=== PATIENT | male | born 1995 | race Caucasian/White ===

== ENCOUNTER 2019-07-25 08:25 | Inpatient (IN) | payer OTHER, SELFPAY ==
[2019-07-25] MEDS ORDERED: IBUPROFEN 400 MG TAB ONE (08:45)
[2019-07-25] MEDS ORDERED: NA CHLORIDE 0.9% 1,000 ML ONE ×3 (08:45→20:36)
[2019-07-25] MEDS ORDERED: ONDANSETRON 4 MG/2 ML VIAL ONE (09:07)
[2019-07-25] MEDS ORDERED: MORPHINE 4 MG/ML SYR ONE ×2 (09:07→11:05)
[2019-07-25 09:15] LABS: Absolute Lymphocytes (CBC) 1.2 K/uL (0.7-4.9); Basophils % 0.2 % (0-1.3); Hematocrit 44.2 % (39.6-49.0); Lymphocytes % 7.2 % (15.3-44.8); RBC Red Blood Cell Count 5.08 M/uL (4.33-5.43)
[2019-07-25 09:17] LABS: Protime INR 1.49
[2019-07-25 09:32] LABS: ALT/SGPT 34 U/L (12-78); AST/SGOT 16 U/L (15-37); Albumin 3.9 g/dL (3.4-5.0); Alkaline Phosphatase 71 U/L (45-117); BUN Blood Urea Nitrogen 11 mg/dL (7-18); Bicarbonate 25 mmol/L (21-32); Bilirubin Direct 0.4 mg/dL (0-0.2); Bilirubin Total 1.2 mg/dL (0.2-1.0); Glucose Level 113 mg/dL (74-106); Magnesium 2.2 mg/dL (1.8-2.4); NT PRO-BNP 76 pg/mL (<125); Potassium 3.9 mmol/L (3.5-5.1); Protein, Total 7.7 g/dL (6.4-8.2); Sodium Level 138 mmol/L (136-145); Troponin (Emerg Dept Use Only) < 0.02 ng/mL (0.0-0.045)
--- NOTE | 2019-07-25 11:00 | RAD REPORT ---
EXAM DESCRIPTION: CT - Thorax W/ Con - 07/25/2019 10:50 am CLINICAL HISTORY: Left-sided shoulder and chest pain, shortness of breath, recent pneumonia diagnosi s COMPARISON: Chest films same date TECHNIQUE: Dynamically enhanced 5 mm thick images of the chest were obtained during administration o f 100 mL non-ionic IV contrast. All CT scans are performed using dose optimization technique as appropriate and may include automated exposure control or mA/KV adjustment according to patient size. FINDINGS: Prominent interstitial markings are present in the right base. This may be subsegmental at electasis given the relative low lung volume on the CT examination. No consolidation in the right maryanne g field. Right base interstitial infiltrate is possible given the subsequent findings. Patient has partial consolidation of the left lower lobe with left lower lobe atelectasis present as well. Moderate-sized pleural effusion is present on the left with fluid in the superior aspect of the fissure. A few air bronchograms are present in the left lower lobe. There is partial atelectasis in the lingula left upper lobe. No cavitation or mass. No right-sided pleural effusion. No pleural based mass. The left hemidiaphragm is elevated. No pneum othorax. No chest wall mass or abnormal axillary lymphadenopathy. No abnormal mediastinal or hilar mass or lymphadenopathy seen. Trace amount of pericardial effusion s een along the left lateral margin. Aorta and pulmonary arterial tree enhance normally. IMPRESSION: Mixed pattern of left lower lobe pneumonia and partial atelectasis of the left lower lob e. Moderate pleural effusion is present. Fluid is along the fissure in the upper chest as well. No locul ation at this time. Trace amount of pericardial effusion along the left lateral margin. Right base stranding is favored to be atelectasis rather than right base infiltrate.
--- NOTE | 2019-07-25 11:01 | RAD REPORT ---
EXAM DESCRIPTION: RAD - Chest Single View - 07/25/2019 9:17 am CLINICAL HISTORY: Chest pain, shortness of breath COMPARISON: None. TECHNIQUE: AP portable chest image was obtained 0911 hours . FINDINGS: Lung volumes are low. Left base opacification is present with left hemidiaphragm and left heart border obscured. This is likely left base pneumonia with pleural effusion. Heart size and vascu lature in normal range for shallow inspiration film. Left hilar fullness may be artifact of shallow i nspiration. Malignancy would not be expected in a patient this age. No pneumothorax. No acute bony ab normality seen. No acute aortic findings suspected. IMPRESSION: Left lung base pneumonia with pleural effusion.
--- NOTE | 2019-07-25 11:15 | EDPHYS ---
Physician Documentation [facility] Name: Rene Sosa Age: 23 yrs Sex: Male : 1995 Arrival Date: 07/25/2019 Time: 08:29 Bed 20 Private MD: ED Physician Daniel Peterson HPI: 07/25 08:35 This 23 yrs old Male presents to ER via Ambulatory with complaints of Chest jmm Pain, Abdominal Pain, Shoulder Pain. 08:35 The patient or guardian reports cough. Onset: The symptoms/episode began/occurred jmm gradually, 2 day(s) ago. Modifying factors: The symptoms are alleviated by nothing. the symptoms are aggravated by lying flat. Associated signs and symptoms: Pertinent positives: chest pain, cough. This is a 23 year old male with no chronic medical conditions that presents to the ED with complaints of left flank pain, left sided chest pain, cough beginning 2 days ago. Patient was evaluated in the ED yesterday and diagnosed with pneumonia and prescribed azithromycin. Patient states pain has increased. Unable to lay on his back. . Historical: - Allergies: 08:42 No Known Allergies; sv - PMHx: 08:42 None; sv - PSHx: 08:42 None; sv - Immunization history:: Adult Immunizations up to date, Flu vaccine is not up to date. - Social history:: Smoking status: Patient/guardian denies using tobacco. - Ebola Screening: : No symptoms or risks identified at this time. ROS: 08:35 Constitutional: Positive for body aches. jmm 08:35 Cardiovascular: Positive for chest pain. 08:35 Respiratory: Positive for cough. 08:35 Back: Positive for flank pain. 08:35 All other systems are negative. Exam: 08:35 Constitutional: This is a well developed, well nourished patient who is awake, alert, jmm and in no acute distress. Head/Face: atraumatic. Eyes: EOMI, no conjunctival erythema appreciated ENT: Moist Mucus Membranes Neck: Trachea midline, Supple Chest/axilla: Normal chest wall appearance and motion. 08:35 Abdomen/GI: Non distended, soft Back: Normal ROM Skin: General appearance color normal MS/ Extremity: Moves all extremities, no obvious deformities appreciated, no edema noted to the lower extremities Neuro: Awake and alert, normal gait Psych: Behavior is normal, Mood is normal, Patient is cooperative and pleasant 08:35 Cardiovascular: Rate: normal, Rhythm: regular. 08:35 Respiratory: the patient does not display signs of respiratory distress, Respirations: normal, Breath sounds: wheezing: that is mild, is heard in the left posterior lower lobe. Vital Signs: 08:42 BP 130 / 88; Pulse 117; Resp 20; Temp 99.2(O); Pulse Ox 99% on R/A; Weight 127.01 kg sv (R); Height 6 ft. 4 in. (193.04 cm); Pain 5/10; 09:23 BP 127 / 92; Pulse 102; Resp 22; Pulse Ox 98% on R/A; Pain 3/10; em 10:01 BP 119 / 77; Pulse 101; Resp 20; Pulse Ox 96% on R/A; Pain 2/10; em 11:12 BP 133 / 83; Pulse 104; Resp 18; Pulse Ox 99% on 2 lpm NC; Pain 2/10; em 12:10 BP 127 / 76; Pulse 97; Resp 22; Pulse Ox 99% on 2 lpm NC; em 08:42 Body Mass Index 34.08 (127.01 kg, 193.04 cm) sv MDM: 08:35 Patient medically screened. [facility] 11:13 Data reviewed: vital signs, nurses notes. Counseling: I had a detailed discussion with [facility] the patient and/or guardian regarding: the historical points, exam findings, and any diagnostic results supporting the discharge/admit diagnosis, lab results, radiology results, the need for further work-up and treatment in the hospital. ED course: I discussed the patient with Dr. Burns whom accepted admission due to failed outpatient therapy and intractable pain. . 07/25 08:42 Order name: Basic Metabolic Panel [facility] 07/25 08:42 Order name: CBC with Diff [facility] 07/25 08:42 Order name: LFT's [facility] 07/25 08:42 Order name: Magnesium [facility] 07/25 08:42 Order name: NT PRO-BNP; Complete Time: 09:46 [facility] 07/25 08:42 Order name: PT-INR; Complete Time: 10:08 [facility] 07/25 08:42 Order name: Troponin (emerg Dept Use Only); Complete Time: 09:46 [facility] 07/25 08:42 Order name: D-Dimer; Complete Time: 10:08 [facility] 07/25 08:42 Order name: Procalcitonin; Complete Time: 10:08 [facility] 07/25 08:42 Order name: Lactate; Complete Time: 09:46 [facility] 07/25 08:43 Order name: Basic Metabolic Panel; Complete Time: 09:46 [facility] 07/25 08:43 Order name: CBC with Automated Diff; Complete Time: 09:46 [facility] 07/25 08:43 Order name: Liver (Hepatic) Function; Complete Time: 09:46 [facility] 07/25 08:43 Order name: Magnesium; Complete Time: 09:46 [facility] 07/25 08:42 Order name: XRAY Chest (1 view); Complete Time: 11:02 [facility] 07/25 08:44 Order name: Blood Culture Adult (2) [facility] 07/25 10:08 Order name: CT Chest W/ Con; Complete Time: 11:02 [facility] 07/25 12:36 Order name: CBC with Automated Diff [facility] 07/25 12:36 Order name: CBC with Automated Diff [facility] 07/25 12:36 Order name: Comprehensive Metabolic Panel [facility] 07/25 12:36 Order name: Comprehensive Metabolic Panel [facility] 07/25 12:36 Order name: Lipid Profile [facility] 07/25 12:36 Order name: Lipid Profile [facility] 07/25 08:42 Order name: EKG; Complete Time: 08:43 [facility] 07/25 08:42 Order name: Cardiac monitoring; Complete Time: 09:34 [facility] 07/25 08:42 Order name: EKG - Nurse/Tech; Complete Time: 09:12 [facility] 07/25 08:42 Order name: IV Saline Lock; Complete Time: 09:34 [facility] 07/25 08:42 Order name: Labs collected and sent; Complete Time: 09:34 [facility] 07/25 08:42 Order name: O2 Per Protocol; Complete Time: 09:34 [facility] 07/25 08:42 Order name: O2 Sat Monitoring; Complete Time: 09:34 [facility] 07/25 12:36 Order name: Regular EDMS Administered Medications: 08:55 Drug: NS 0.9% 1000 ml Route: IV; Rate: 1 bolus; Site: right antecubital; em 10:02 Follow up: IV Status: Completed infusion; IV Intake: 1000ml em 09:08 Drug: Zofran 4 mg Route: IVP; Site: right antecubital; iw 09:41 Follow up: Response: No adverse reaction em 09:10 Drug: morphine 4 mg Route: IVP; Site: right antecubital; iw 09:42 Follow up: Response: No adverse reaction; Marked relief of symptoms; Pain is decreased em 09:21 Drug: Motrin 800 mg Route: PO; em 10:02 Follow up: Response: No adverse reaction em 11:09 Drug: morphine 4 mg Route: IVP; Site: right antecubital; em 11:29 Follow up: Response: No adverse reaction; Pain is decreased; RASS: Alert and Calm (0) em 11:16 Drug: NS 0.9% 1000 ml Route: IV; Rate: 1 bolus; Site: right antecubital; em 13:02 Follow up: IV Status: Completed infusion; IV Intake: 1000ml em 11:29 Drug: LevaQUIN 750 mg Volume: 150 ml; Route: IVPB; Infused Over: 90 mins; Site: right em antecubital; 13:03 Follow up: Response: No adverse reaction; IV Status: Completed infusion; IV Intake: em 150ml Disposition: 07/26 07:50 Co-signature as Attending Physician, Daniel Peterson MD I agree with the assessment and kdr plan of care. Disposition: 07/25/19 11:14 Hospitalization ordered by Nato Burns for Observation. Preliminary diagnosis are Pneumonia in diseases classified elsewhere, Intractable Pain. - Bed requested for Telemetry/MedSurg (observation). - Status is Observation. em - Condition is Stable. - Problem is new. - Symptoms are unchanged. UTI on Admission? No Signatures: Dispatcher [employer] Kady Raya RN RN sv Rittger, Kevin, MD MD kdr Mickail, Joel, PA PA jmm Darrel Carmona, PROGRAM OR PROJECT ADMINISTRATOR PROGRAM OR PROJECT ADMINISTRATOR em Andra Epps, Aric Kramer RN, RN RN ja1 Corrections: (The following items were deleted from the chart) 07/25 11:56 11:14 Hospitalization Ordered by Nato Burns MD for Observation. Preliminary ja1 diagnosis is Pneumonia in diseases classified elsewhere; Intractable Pain. Bed requested for Telemetry/MedSurg (observation). Status is Observation. Condition is Stable. Problem is new. Symptoms are unchanged. UTI on Admission? No. jmm 13:10 11:56 07/25/2019 11:14 Hospitalization Ordered by Nato Burns MD for Observation. em Preliminary diagnosis is Pneumonia in diseases classified elsewhere; Intractable Pain. Bed requested for Telemetry/MedSurg (observation). Status is Observation. Condition is Stable. Problem is new. Symptoms are unchanged. UTI on Admission? No. ja1
--- NOTE | 2019-07-25 11:15 | ER ---
Nurse's Notes [facility] Name: Rene Sosa Age: 23 yrs Sex: Male : 1995 Arrival Date: 07/25/2019 Time: 08:29 Bed 20 Private MD: Diagnosis: Pneumonia in diseases classified elsewhere;Intractable Pain Presentation: 07/25 08:34 Presenting complaint: Patient states: was seen at [facility] and dx w/ pneumonia about sv 2 nights ago, today has persistent left shoulder/chest/mid back pain/left flank pain, worse with breathing. Sent home with Leif. Transition of care: patient was not received from another setting of care. Onset of symptoms was July 23, 2019. Risk Assessment: Do you want to hurt yourself or someone else? Patient reports no desire to harm self or others. Initial Sepsis Screen: Does the patient meet any 2 criteria? HR > 90 bpm. No. Patient's initial sepsis screen is negative. Does the patient have a suspected source of infection? Yes: Productive cough/pneumonia. Care prior to arrival: Medication(s) given: Zpack. 08:34 Method Of Arrival: Ambulatory sv 08:34 Acuity: YUSRA 3 sv Historical: - Allergies: 08:42 No Known Allergies; sv - PMHx: 08:42 None; sv - PSHx: 08:42 None; sv - Immunization history:: Adult Immunizations up to date, Flu vaccine is not up to date. - Social history:: Smoking status: Patient/guardian denies using tobacco. - Ebola Screening: : No symptoms or risks identified at this time. Screenin:50 Abuse screen: Denies threats or abuse. Nutritional screening: No deficits noted. em Tuberculosis screening: No symptoms or risk factors identified. Fall Risk None identified. Assessment: 08:35 General: Appears in no apparent distress. uncomfortable, well developed, Behavior is sv calm, cooperative, appropriate for age. Pain: Complains of pain in left supraclavicular area, left clavicle, anterior aspect of left upper chest, left lateral posterior chest and anterior aspect of left shoulder Pain does not radiate. Pain currently is 5 out of 10 on a pain scale. Pain began 2-3 days ago. Is continuous, Aggravated by breathing. Neuro: Level of Consciousness is awake, alert, obeys commands, Oriented to person, place, time, situation, Gait is steady, Speech is normal. Respiratory: Respiratory effort is even, unlabored, Respiratory pattern is regular, symmetrical. Derm: Skin is normal. 10:01 Reassessment: Patient appears in no apparent distress at this time. Patient and/or em family updated on plan of care and expected duration. Pain level reassessed. Patient is alert, oriented x 3, equal unlabored respirations, skin warm/dry/pink. rates pain 2/10 Patient states feeling better. 11:30 Reassessment: Patient appears in no apparent distress at this time. Patient and/or em family updated on plan of care and expected duration. Pain level reassessed. Patient is alert, oriented x 3, equal unlabored respirations, skin warm/dry/pink. Patient states feeling better. Patient states symptoms have improved. Vital Signs: 08:42 BP 130 / 88; Pulse 117; Resp 20; Temp 99.2(O); Pulse Ox 99% on R/A; Weight 127.01 kg sv (R); Height 6 ft. 4 in. (193.04 cm); Pain 5/10; 09:23 BP 127 / 92; Pulse 102; Resp 22; Pulse Ox 98% on R/A; Pain 3/10; em 10:01 BP 119 / 77; Pulse 101; Resp 20; Pulse Ox 96% on R/A; Pain 2/10; em 11:12 BP 133 / 83; Pulse 104; Resp 18; Pulse Ox 99% on 2 lpm NC; Pain 2/10; em 12:10 BP 127 / 76; Pulse 97; Resp 22; Pulse Ox 99% on 2 lpm NC; em 08:42 Body Mass Index 34.08 (127.01 kg, 193.04 cm) sv ED Course: 08:29 Patient arrived in ED. mr 08:30 Fran Almonte PA is PHCP. jmm 08:30 Daniel Peterson MD is Attending Physician. jmm 08:34 Arm band placed on Patient placed in an exam room, on a stretcher. sv 08:35 Patient has correct armband on for positive identification. Bed in low position. Call light in reach. Adult w/ patient. Pulse ox on. NIBP on. 08:38 Darrel Carmona LVN is Primary Nurse. em 08:41 Triage completed. sv 08:46 Patient maintains SpO2 saturation greater than 95% on room air. sv 08:55 Inserted saline lock: 20 gauge in right antecubital area, using aseptic technique. em Blood collected. 08:55 Initial lab(s) drawn, by me, sent to lab. First set of blood cultures drawn by me. em 09:11 EKG done, by ED staff, reviewed by Daniel Peterson MD. 5 09:18 XRAY Chest (1 view) In Process Unspecified. EDMS 10:51 CT Chest W/ Con In Process Unspecified. EDMS 11:13 Nato Burns MD is Hospitalizing Provider. m 13:07 No provider procedures requiring assistance completed. Patient admitted, IV remains in em place. Administered Medications: 08:55 Drug: NS 0.9% 1000 ml Route: IV; Rate: 1 bolus; Site: right antecubital; em 10:02 Follow up: IV Status: Completed infusion; IV Intake: 1000ml em 09:08 Drug: Zofran 4 mg Route: IVP; Site: right antecubital; iw 09:41 Follow up: Response: No adverse reaction em 09:10 Drug: morphine 4 mg Route: IVP; Site: right antecubital; iw 09:42 Follow up: Response: No adverse reaction; Marked relief of symptoms; Pain is decreased em 09:21 Drug: Motrin 800 mg Route: PO; em 10:02 Follow up: Response: No adverse reaction em 11:09 Drug: morphine 4 mg Route: IVP; Site: right antecubital; em 11:29 Follow up: Response: No adverse reaction; Pain is decreased; RASS: Alert and Calm (0) em 11:16 Drug: NS 0.9% 1000 ml Route: IV; Rate: 1 bolus; Site: right antecubital; em 13:02 Follow up: IV Status: Completed infusion; IV Intake: 1000ml em 11:29 Drug: LevaQUIN 750 mg Volume: 150 ml; Route: IVPB; Infused Over: 90 mins; Site: right em antecubital; 13:03 Follow up: Response: No adverse reaction; IV Status: Completed infusion; IV Intake: em 150ml Intake: 10:02 IV: 1000ml; Total: 1000ml. em 13:02 IV: 1000ml; Total: 2000ml. em 13:03 IV: 150ml; Total: 2150ml. em Outcome: 11:14 Decision to Hospitalize by Provider. kamryn 12:20 Admitted to Med/surg accompanied by tech, family with patient, via wheelchair, room em 210, with oxygen, with chart, Report called to MCKAYLA Barrera 12:20 Condition: good 12:20 Instructed on the need for admit, Demonstrated understanding of instructions. 13:10 Patient left the ED. em Signatures: Dispatcher [employer] Kady Raya, RN Fran Tran PA PA jmm Rivera, Mary mr Mathew, Darrel, TOE TRIMMER TOE TRIMMER Andra Nelson, MCKAYLA BLOCK [place] [id number]
[2019-07-25] MEDS ORDERED: Levofloxacin 750mg IV 750 MG/150 ML BAG IV ONE (11:21)
[2019-07-25] MEDS ORDERED: ZOLPIDEM TARTRATE 5 MG TABLET PO PRN (12:29)
[2019-07-25 13:42] VITALS: BMI 34.3
[2019-07-25] MEDS: ACETAMINOPHEN 500 MG TAB PO PRN (13:54)
[2019-07-25] MEDS: ENOXAPARIN 40 MG/0.4 ML SQ SCH (13:54)
[2019-07-25] MEDS: CEFTRIAXONE/SWI 1gm 1 GM/10 ML SYR IVP SCH ×2 (13:54→20:21)
[2019-07-25] MEDS ORDERED: AZITHROMYCIN IV 500 MG in NA CHLORIDE 0.9% 250 ML IVPB SCH (14:00)
[2019-07-25] MEDS: IPRATROPIUM BROM 0.5MG/2.5ML NEB SCH ×2 (14:17→20:00)
[2019-07-25] MEDS: ALBUTEROL 2.5 MG/3 ML NEB SOL NEB SCH ×2 (14:17→20:00)
[2019-07-25] MEDS: MORPHINE 2 MG/ML SYR IV PRN ×3 (15:18→23:44)
[2019-07-25] MEDS ORDERED: INFLUENZA VACCINE (for 3y+) 0.5 ML DOSE IMVAC ONE (16:00)
[2019-07-25] MEDS: ONDANSETRON 4 MG/2 ML VIAL IV PRN (18:14)
[2019-07-25] MEDS ORDERED: NA CHLORIDE 0.9% 250 ML IV ONE ×2 (20:07→23:33)
[2019-07-25] MEDS ORDERED: ACETAMINOPHEN 500 MG TAB PO ONE (20:08)
[2019-07-25] MEDS: NA CHLORIDE 0.9% 1,000 ML IV SCH (20:49)
--- NOTE | 2019-07-25 23:29 | HP ---
Date of Admission: 07/25/2019 Reason For Admission: Chest pain with shortness of breath. History Of Present Illness: This is a 23-year-old gentleman without significant past medical history , who initially presented to a local yesterday due to progressive shortness of breath as w ell as left-sided chest pain that started 2 days ago including left shoulder, left flank, and left ba ck. Worse with breathing. X-ray was done and showed signs of pneumonia. Patient was given Z-Ashish an d discharged home, but his symptoms got worse and shortness of breath and chest pain mostly on the le ft side got worse. He decided to come to the emergency room today. He was evaluated in our emergenc y room and found to have again left lung base pneumonia with pleural effusion on the x-ray. Had a CT of the chest done as well, showed mixed pattern of left lower lobe pneumonia and partial atelectasis of the left lower lobe. Moderate pleural effusion effusion noted on the left lateral mar gin; right base stranding, favored to be atelectasis rather than a right base infiltrate. Patient re ported mild nausea, fatigue. He was given morphine, Motrin, and Zofran and admitted for treatment of his pneumonia. Patient's labs in the ER showed leukocytosis, white blood cells 16.8. Chemistry was unremarkable. Blood culture was done. Currently, he is sitting in bed. He is feeling comfortable. Chest pain improved after he got the morphine. Review of Systems: Otherwise as below. Past Medical History: None. Past Surgical History: None. Allergies: NONE. Social History: He is . He is 23 years old. 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 He does not smoke or use any drugs. He does drink socially. Family History: Father and mother are alive and they are both healthy. Father has diabetes. Home Medications: None. Review of Systems: He had a fever 2 days ago. There are no chills or night sweats. He has not had any loss of consciou sness. He has a cough, no sputum. He has shortness of breath. He has no nausea, vomiting, abdomina l pain, change in bowel movement, diarrhea, constipation, dysuria, frequency, urgency, hematuria. De nies history of depression, anxiety, seizure, or stroke. Physical Examination: Vital Signs: Blood pressure is 130/88; respiratory rate 20; pulse 117 on arrival, 101 now; and satur ating 98% on room air. Current pain is 2/10. General: Patient is alert and oriented x3. Does not look in any distress. HEENT: Atraumatic, normocephalic. PERRLA. Oral mucosa is moist. Neck: Supple. No JVD. No bruits. Chest: Clear to auscultation. Good air entry. He has crackles in the left lung. Heart: Regular rate and rhythm. Tachy. No gallop or murmur. Abdomen: Soft, nontender, with no hepatosplenomegaly. Positive bowel sounds. Extremities: No clubbing, cyanosis, or edema. No calf tenderness. Neurologic: Grossly intact. Cranial nerve exam 2 through 12 intact. Normal sensation. Normal refl exes. Normal muscle strength. Laboratory Data: Today, showed CBC with white blood cells 16.8, platelets normal, hemoglobin normal, left shift with neutrophils of 84%. Chemistry normal. Glucose 113, total bilirubin 1.2, direct emigdio irubin 0.4, globulin 3.8. CT and chest x-ray as mentioned in my History of Present Illness. Assessment And Plan: This is a 23-year-old gentleman without significant past medical history, prese nted with history of 2 or 3 days of fever, chills, and left-sided chest pain. Found to have left maryanne g pneumonia. 1.Left lower lobe pneumonia. We will proceed with blood culture, start patient on IV antibiotic wit h ceftriaxone and Zithromax. Patient was outpatient on Z-Ashish, which was apparently not strong enough , and that is why he continued to have chest pain. Physical exam was negative. Procalcitonin was 0. 39, so there is no evidence of sepsis. We will place patient on an inhaler every 6 hours as well as oxygen. 2.Chest pain. Started on morphine. 3.Overweight. Advised diet and exercise as an outpatient. 4.Deep vein thrombosis prophylaxis with Lovenox. LEONID/BELKIS Voice ID: [id number]
[2019-07-26] MEDS ORDERED: HYDROCORTISONE SUC 100 MG INJ IV ONE (00:22)
[2019-07-26] MEDS: ACETAMINOPHEN 500 MG TAB PO PRN ×3 (00:35→20:43)
[2019-07-26] MEDS: IPRATROPIUM BROM 0.5MG/2.5ML NEB SCH ×2 (02:00→08:13)
[2019-07-26] MEDS: ALBUTEROL 2.5 MG/3 ML NEB SOL NEB SCH ×2 (02:00→08:13)
[2019-07-26] MEDS ORDERED: PIPERACIL/TAZO 3.375 GM VIAL IV ONE (05:27)
[2019-07-26] MEDS ORDERED: NA CHLORIDE 0.9% 100 ML ONE (05:29)
[2019-07-26] MEDS: MORPHINE 2 MG/ML SYR IV PRN (05:54)
[2019-07-26 05:57] LABS: Absolute Lymphocytes (CBC) 1.5 K/uL (0.7-4.9); Basophils % 0.3 % (0-1.3); Hematocrit 41.2 % (39.6-49.0); Lymphocytes % 8.5 % (15.3-44.8); MPV 7.9 fL (7.6-11.3); RBC Red Blood Cell Count 4.61 M/uL (4.33-5.43)
[2019-07-26 05:59] LABS: Protime INR 1.41
[2019-07-26] MEDS ORDERED: PIPER/TAZO/NS 3.375gm 3.375 GM/100 ML BAG IVPB SCH (06:00)
[2019-07-26 06:05] LABS: ALT/SGPT 24 U/L (12-78); AST/SGOT 11 U/L (15-37); Alkaline Phosphatase 64 U/L (45-117); BUN Blood Urea Nitrogen 11 mg/dL (7-18); Bicarbonate 24 mmol/L (21-32); Bilirubin Total 0.5 mg/dL (0.2-1.0); Glucose Level 132 mg/dL (74-106); HDL Cholesterol 37 mg/dL (40-60); LDL Cholesterol, Calculated 71 (<130); Potassium 4.3 mmol/L (3.5-5.1); Protein, Total 6.7 g/dL (6.4-8.2); Sodium Level 142 mmol/L (136-145)
[2019-07-26 06:11] LABS: Albumin 3.1 g/dL (3.4-5.0); Bilirubin Direct 0.2 mg/dL (0-0.2); Bilirubin Total 0.6 mg/dL (0.2-1.0); Protein, Total 6.7 g/dL (6.4-8.2); Thyroid Stimulating Hormone 1.02 uIU/mL (0.360-3.740)
--- NOTE | 2019-07-26 07:41 | P.PN ---
Subjective Date of Service: 07/25/19 Called to see patient regarding tachycardia and chest discomfort. Evaluated patient's records. Patient with pneumonia with consolidation. Patient also with moderate pleural effusion and I had as well as pleural effusion in the fissure superior to the left lower lobe. Patient having pleuritic chest pain and heart rate varying from 120s to 140s. Will consult Pulmonary. We will also get interventional Radiology to see the patient for diagnosis of possible parapneumonic effusion. Review of Systems 10-point ROS is otherwise unremarkable Physical Examination - Vital Signs Temperature: 9.9 F Blood Pressure: 125/73 Pulse: 126 Respirations: 18 Pulse Ox (%): 94 - Physical Exam General: Alert, Oriented x3, Mild distress Respiratory: Diminished ( left lower lobe) Cardiovascular: Regular rate/rhythm, Normal S1 S2 Gastrointestinal: Normal bowel sounds, Soft and benign, Non-distended, No tenderness Musculoskeletal: No clubbing, No swelling - Studies Laboratory Data (last 24 hrs) 07/25/19 08:55: PT 17.3 H, INR 1.49 07/25/19 08:55: WBC 16.8 H, Hgb 15.1, Hct 44.2, Plt Count 227 07/25/19 08:55: Sodium 138, Potassium 3.9, BUN 11, Creatinine 1.05, Glucose 113 H, Magnesium 2.2, Total Bilirubin 1.2 H, AST 16, ALT 34, Alkaline Phosphatase 71 Assessment & Plan - Problems (Diagnosis) (1) Parapneumonic effusion Current Visit: Yes Status: Acute (2) Consolidation of left lower lobe of lung Current Visit: Yes Status: Acute (3) Tachycardia Current Visit: Yes Status: Acute (4) Pleuritic chest pain Current Visit: Yes Status: Acute - Plan Plan: 1. Continue with IV antibiotics 2. Awaiting sputum and blood culture; procalcitonin level is nl so most likely pneumonic process with no sepsis 3. Repeat chest x-ray in AM 4. interventional radiology consultation for possible ultrasound-guided thoracentesis 5. morphine for pain 6. Continue with nebs as needed 7. O2 per protocol 8. Continue with gentle hydration 9. hydrocortisone x1 for pleurisy type pain 10. pulmonary consultation 11. GI and DVT prophylaxis Discharge Plan: Home Plan to discharge in: Greater than 2 days - Advance Directives Does patient have a Living Will: No Does patient have a Durable POA for Healthcare: No - Code Status/Comfort Care Code Status Assessed: Yes Code Status: Full Code Critical Care: No Time Spent Managing PTS Care (In Minutes): 45
[2019-07-26] MEDS: ENOXAPARIN 40 MG/0.4 ML SQ SCH (09:00)
[2019-07-26] MEDS ORDERED: HYDROCODONE/APAP 7.5/325 MG TAB PO PRN (09:02)
--- NOTE | 2019-07-26 09:37 | EKG ---
Test Date: 2019-07-25 Test Time: 08:44:00 Echocardiograph Technician: LASHAWN MEASUREMENT RESULTS: Intervals: Rate: 114 MS: 116 QRSD: 102 QT: 320 QTc: 441 Rawlings: P: 21 MS: 116 QRS: 26 T: 42 INTERPRETIVE STATEMENTS: Sinus tachycardia Possible Left atrial enlargement Borderline ECG No previous ECG available for comparison Electronically Signed On 07-26-19 09:36:16 JIG MILL OPERATOR by Asim Molina
--- NOTE | 2019-07-26 09:37 | EKG ---
Test Date: 2019-07-25 Test Time: 08:44:28 Associate Business Analyst: LASHAWN MEASUREMENT RESULTS: Intervals: Rate: 114 [place]: 146 QRSD: 98 QT: 328 QTc: 452 Thurston: P: 38 [place]: 146 QRS: 23 T: 42 INTERPRETIVE STATEMENTS: Sinus tachycardia Otherwise normal ECG Compared to ECG 07/25/2019 08:44:00 No significant changes Electronically Signed On 07-26-19 09:36:12 STILL RUNNER by Asim Molina
--- NOTE | 2019-07-26 10:43 | RAD REPORT ---
EXAM DESCRIPTION: US - Chest - 07/26/2019 9:57 am CLINICAL HISTORY: Pneumonia, pleural effusion COMPARISON: CT chest July 25 FINDINGS: Sonographic evaluation of the left chest was performed to evaluate pleural fluid. Small am ount of pleural fluid was identified high in the chest at the level of the scapula. No significant pl eural fluid was identifiable in the left lung base. No septation or stranding. No sonographic finding s specific for loculation. The upper thoracic fluid is not a drainable quantity of fluid due to volume and location. Findings discussed with the consulting pipe layer at the time of the study. IMPRESSION: Small quantity of fluid high in the chest at the scapula level. This is not a drainable collection based on location and quantity of fluid.
--- NOTE | 2019-07-26 10:43 | RAD REPORT ---
EXAM DESCRIPTION: US - Abdomen Exam Complete - 07/26/2019 9:57 am CLINICAL HISTORY: Abdominal pain. elevated bilirubin COMPARISON: No comparisons FINDINGS: Mild diffuse fatty liver is present. No focal liver lesions or intrahepatic biliary dilata tion is seen. The gallbladder demonstrates no gallstones, pericholecystic fluid or gallbladder wall thickening. Co mmon bile duct is normal in caliber measuring 3 mm. Both kidneys are normal in size, shape and echotexture. No hydronephrosis, focal lesion of concern or perinephric fluid. The spleen is normal in size measuring 13 cm. The pancreas and aorta are obscured by bowel gas. The visualized aspects of the IVC are grossly normal. IMPRESSION: Mild diffuse fatty liver.
[2019-07-26] MEDS ORDERED: Levofloxacin500mg IV 500 MG/100 ML BAG IV SCH (11:00)
[2019-07-26] MEDS: PIPER/TAZO/NS 3.375gm 3.375 GM/100 ML BAG IVPB SCH ×2 (11:18→16:46)
[2019-07-26] MEDS: NA CHLORIDE 0.9% 1,000 ML IV SCH (11:20)
--- NOTE | 2019-07-26 11:24 | ECHO ---
HEIGHT: 6 ft 4 in WEIGHT: 282 lb 4 oz DATE OF STUDY: 07/26/[address]: Jackie Nicolas MD 2-DIMENSIONAL: YES M.MODE: YES DOPPLER: YES COLOR FLOW: YES TDS: YES PORTABLE: DEFINITY: BUBBLE STUDY: DIAGNOSIS: PLURAL EFFUSION CARDIAC HISTORY: CATHERIZATION: NO SURGERY: NO PROSTHETIC VALVE: NO PACEMAKER: NO MEASUREMENTS (cm) DIASTOLIC (NORMALS) SYSTOLIC (NORMALS) IVSd 0.9 (0.6-1.2) LA Diam 3.4 (1.9-4.0) LVEF 65% LVIDd 3.2 (3.5-5.7) LVIDs 2.1 (2.0-3.5) %FS 34% LVPWd 1.0 (0.6-1.2) Ao Diam 2.5 (2.0-3.7) 2 DIMENSIONAL ASSESSMENT: RIGHT ATRIUM: NORMAL LEFT ATRIUM: NORMAL RIGHT VENTRICLE: NORMAL LEFT VENTRICLE: NORMAL TRICUSPID VALVE: NORMAL MITRAL VALVE: NORMAL PULMONIC VALVE: NORMAL AORTIC VALVE: NORMAL PERICARDIAL EFFUSION: NONE AORTIC ROOT: NORMAL LEFT VENTRICULAR WALL MOTION: NORMAL DOPPLER/COLOR FLOW: NORMAL COMMENTS: NORMAL TWO DIMENSIONAL ECHOCARDIOGRAM WITH DOPPLER. TECHNOLOGIST: MARINO NOLAN
--- NOTE | 2019-07-26 11:59 | P.CNS ---
Date of Consult: 07/26/19 Chief Complaint: Left-sided pleuritic chest pain History of Present Illness: Patient is 73 years of age admitted with sudden onset of left-sided pleuritic chest pain associated with fever and chills was found to have a left-sided pleural effusion presume secondary to pneumonia and no other prior cardiopulmonary problems patient used to take acid reflux medication before Allergies No Known Allergies Allergy (Verified 07/25/19 12:18) Home Medications: Omeprazole 1 cap PO SEECOM PRN 07/26/19 - Past Medical/Surgical History Diabetic: No -: Colonoscopy, 5 months ago / Outpatient -: Col[facility] Bone Surgery, 2007 / [facility] - Family History Father Notes: high cholesterol Mother Notes: none - Social History Alcohol use: Yes CD- Drugs: No Caffeine use: Yes Place of Residence: Home Review of Systems 10-point ROS is otherwise unremarkable Physical Examination Temp Pulse Resp BP Pulse Ox 98.9 F 118 H 20 134/77 95 07/26/19 08:00 07/26/19 08:00 07/26/19 09:15 07/26/19 08:00 07/26/19 09:15 General: Alert, Mild distress Respiratory: Clear to auscultation bilaterally, Diminished (Diminished on the left side) Cardiovascular: No edema, Regular rate/rhythm, Normal S1 S2 - Problems (1) Pleuritic chest pain Current Visit: Yes Status: Acute Plan: Patient is 23 years of age 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 levofloxacin for 10 days
[2019-07-26] MEDS ORDERED: VANCOMYCIN/NS 1 gm 1 GM/250 ML BAG IVPB SCH (14:30)
[2019-07-26] MEDS: VANCOMYCIN 2 GM in NA CHLORIDE 0.9% 500 ML IVPB SCH (15:52)
[2019-07-26] MEDS: ONDANSETRON 4 MG/2 ML VIAL IV PRN (19:29)
--- NOTE | 2019-07-26 19:31 | PN ---
Date of Progress Note: 07/26/2019 Subjective: Patient is seen and examined. Chart reviewed and case discussed with RN and Dr. Dominga worley. Patient is still having significant amount of pain with deep breaths, currently on 2 L of oxygen, was scheduled for thoracentesis today, however ultrasound did not show any drainable fluid. Medications: List reviewed. Physical Examination: Vital Signs: Temperature 98.9, heart rate 118, blood pressure 134/77, respirations 20, O2 95% on 2 L via nasal cannula. General: Awake alert oriented x3, obese male. CV: S1, S2. Sinus tachycardia. Peripheral pulses present. Respiratory: Diminished breath sounds. Poor inspiratory effort. Some rhonchi heard. Gastrointestinal: Abdomen is soft, nontender, nondistended. Positive bowel sounds. No guarding or rigidity. Extremities: No clubbing, cyanosis, or edema. No calf tenderness. Neurologic: Cranial nerves 2 through 12 intact grossly. No focal neurological deficit. Speech is n ormal. Laboratory Data: Sodium 142, potassium 4.3, chloride 111, CO2 24, BUN 11, creatinine 1.01, glucose 1 32, calcium 8.2. Total bilirubin 0.5, direct bilirubin 0.2, AST 11, ALT 24, lactate dehydrogenase is 169, albumin 3. Triglycerides 68, cholesterol 122, LDL 71, HDL 37. TSH 1.02, free T4 1.29, lactate 1. INR 1.41. D-dimer is 499. WBC 17.4, H and H of 13.6 and 41.2, platelets 236, neutrophils 83%. Blood cultures, no growth to date. Echocardiogram shows EF of 65%. Normal 2 dimensional echo with Doppler. EKG shows sinus tachycardia, rate of 114. Chest ultrasound shows small quantity of fluid, high in the chest at the scapular level. This is not drainable collec tion based on location and quantity of fluid. Abdominal ultrasound, mild diffuse fatty liver. Assessment: A 23-year-old male with: 1.Left lower lobe pneumonia. We will continue with IV antibiotics adjusted, changed over to Zosyn a nd vancomycin. We will follow up on blood cultures, failed outpatient treatment with Z-Ashish. No evid ence of sepsis at this time, but white blood cell count trending up. Did receive dose of IV steroids due to pleuritic chest pain. 2.Left-sided pleural effusion, not amenable to drainage. We will repeat chest x-ray in a.m. Keep n .p.o. May need thoracentesis in a.m. If it turns out to be loculated or worsening, may need to be t ransferred for cardiothoracic surgery and VATS procedure. 3.Pleuritic chest pain secondary to above. 4.Obese BMI 34, counseled. We will check A1c. 5.Hyperglycemia without diagnosis of diabetes. Check A1c may be related to steroids and stress kelly ramirez versus diabetes. 6.Fatty liver disease, counseled. 7.Hyperbilirubinemia, corrected, likely acute phase reactant. Plan: As above. We will continue with Lovenox for deep venous thrombosis prophylaxis. We will hold in a.m. for possible thoracentesis, pending chest x-ray. /BELKIS Voice ID: [id number] Report ID: [id number]
[2019-07-26] MEDS ORDERED: FUROSEMIDE 40 MG/4 ML VIAL IV ONE (20:14)
[2019-07-26] MEDS ORDERED: METHYLPREDNISOLONE 40 MG INJ IV ONE (20:15)
[2019-07-27] MEDS: PIPER/TAZO/NS 3.375gm 3.375 GM/100 ML BAG IVPB SCH ×4 (00:55→20:06)
[2019-07-27] MEDS: VANCOMYCIN 2 GM in NA CHLORIDE 0.9% 500 ML IVPB SCH ×2 (03:27→16:37)
[2019-07-27 05:49] LABS: Absolute Lymphocytes (CBC) 0.7 K/uL (0.7-4.9); Basophils % 0.1 % (0-1.3); Hematocrit 36.8 % (39.6-49.0); Lymphocytes % 5.3 % (15.3-44.8); MPV 8.2 fL (7.6-11.3); RBC Red Blood Cell Count 4.25 M/uL (4.33-5.43)
[2019-07-27 05:56] LABS: Albumin 2.9 g/dL (3.4-5.0); Bilirubin Total 0.5 mg/dL (0.2-1.0); Potassium 3.8 mmol/L (3.5-5.1); Protein, Total 6.8 g/dL (6.4-8.2)
--- NOTE | 2019-07-27 08:32 | RAD REPORT ---
EXAM DESCRIPTION: RAD - Chest Pa And Lat (2 Views) - 07/27/2019 8:15 am CLINICAL HISTORY: left sided effusion Chest pain. COMPARISON: Chest Single View dated 07/25/2019; Thorax W/ Con dated 07/25/2019; Chest dated 07/26/20 19; Abdomen Exam Complete dated 07/26/2019 FINDINGS: Large left-sided pleural effusion noted. Minimal atelectasis is present in the right lung base. The heart is upper limit normal in size. No displaced fractures.
--- NOTE | 2019-07-27 08:43 | P.PN ---
Subjective Date of Service: 07/27/19 Chief Complaint: Left-sided pleuritic chest pain Subjective: Improving (Patient pain has significantly improved is feeling better chest x-ray worse) Review of Systems General: Weakness Respiratory: Shortness of Breath Physical Examination - Vital Signs Temperature: 98.1 F Blood Pressure: 135/80 Pulse: 111 Respirations: 18 Pulse Ox (%): 91 - Physical Exam General: Alert, In no apparent distress, Oriented x3 Respiratory: Diminished (Diminished air entry on the left side right lung is clear) Cardiovascular: No edema, Normal pulses Assessment & Plan - Problems (Diagnosis) (1) Pleuritic chest pain Current Visit: Yes Status: Acute Plan: Patient most likely has left-sided parapneumonic effusion secondary to a pneumococcal infection clinically he is improving chest x-ray looks worse is a pleural effusion a significantly worse white count is declined slight fever yesterday on Zosyn and vancomycin I have discussed with the patient and his mother will repeat an ultrasound today and then no significant loculations patient will benefit from a chest tube otherwise he will need to be transferred to a tertiary care center for a vats procedure patient's vital signs are stable
[2019-07-27] MEDS ORDERED: D5 0.9 NS 1,000 ML IV SCH (09:00)
[2019-07-27] MEDS: ENOXAPARIN 40 MG/0.4 ML SQ SCH (09:00)
--- NOTE | 2019-07-27 09:23 | RAD REPORT ---
EXAM DESCRIPTION: US - Chest - 07/27/2019 9:15 am CLINICAL HISTORY: Left sided effusion COMPARISON: Chest Pa And Lat (2 Views) dated 07/27/2019; Thorax W/ Con dated 07/25/2019; Chest dated 07/26/2019 FINDINGS: Real-time sonography was performed of the left chest wall. A loculated moderate size pleur al effusion is noted with fluid extending into the fissure.
[2019-07-27 12:49] LABS: Anisocytosis 1+; Blood Morphology Comment NOTED (NOT SEEN); Platelet Estimate ADEQ; Urine White Blood Cell Casts OK
[2019-07-27] MEDS: ACETAMINOPHEN 500 MG TAB PO PRN (13:53)
[2019-07-27 16:33] VITALS: BP 133/74
[2019-07-27 17:58] VITALS: O2SAT 96
[2019-07-27] MEDS ORDERED: PANTOPRAZOLE 40MG TABLET PO ONE (18:00)
[2019-07-27] MEDS ORDERED: ACETAMINOPHEN 325 MG TABLET PO ONE (18:00)
[2019-07-27 18:36] VITALS: TEMP 99.2
--- NOTE | 2019-07-27 23:02 | DS ---
Date of Discharge: 07/27/2019 Consultants: Dr. Keenan with Pulmonology. Procedures: None. Admitting Diagnoses: 1.Left lower lobe pneumonia with parapneumonic effusion likely due to Streptococcus, likely pneumoco ccal pneumonia. 2.Pleuritic chest pain. 3.Obese. Discharge Diagnoses: 1.Left lower lobe pneumonia with parapneumonic effusion likely pneumococcal pneumonia, improving wit h IV antibiotics. 2.Parapneumonic effusion loculated, will need VATS procedure. 3.Pleuritic chest pain, improving. 4.Obesity, BMI 34. 5.Fatty liver disease, counseled. 6.Hyperglycemia, likely related to steroids. A1c is 4.6%. 7.Hyperbilirubinemia, resolved, likely acute phase reactant. 8.Acute respiratory distress with hypoxemia. Hospital Course: Patient is a 23-year-old male, who came into the hospital for chest pain that was p leuritic in nature along with shortness of breath. Patient was on Z-Ashish 2 days prior to admission wh en x-ray had shown a pneumonia. However, patient got worse. CT scan showed left lower lobe pneumoni a and partial atelectasis as well as moderate pleural effusion. The [place] [address]. He was tachycardic. Patient was started on IV antibiotics with azithromycin and Rocephi n. Procalcitonin was 0.39. There was no evidence of sepsis on admission. Patient was seen by Pulmo nology. Chest ultrasound was done, which showed effusion; however, was not amenable to thoracentesis . Ultrasound of the abdomen was also done due to pain, showed fatty liver disease. Patient was coun seled. The patient's white blood cell count improved. His antibiotics were switched over to Zosyn a nd vancomycin for broad spectrum coverage. Cultures were also obtained, which did not show any growt h to date. Repeat chest x-ray on the day of transfer showed worsening and showed large left-sided pl eural effusion with minimal atelectasis in the right lung base. Patient was still requiring oxygen. Repeat ultrasound showed loculated effusions and therefore patient was recommended to be transferred to higher level of care for VATS procedure. Patient was then referred to [facility] for transfer and will be discharged once accepted. Physical Examination: General: Awake, alert, and oriented x3, ill-appearing obese male. BMI 34.4. CV: S1, S2. Sinus tachycardia. Peripheral pulses present. Respiratory: Diminished breath sounds on the left, rhonchi heard. Gastrointestinal: Abdomen is soft, nontender, nondistended. Positive bowel sounds. Extremities: No clubbing, cyanosis, or edema. Neurologic: Nonfocal. Total time spent transferring the patient was 45 minutes. TONY Voice ID: [id number] Report ID: [id number]
== END 2019-07-27 21:15 | disposition short-term general hospital (02) | DRG 194 ==
LOC: ER 08:25 → 2ND 12:30
PROVIDERS: ADMIT Internal Medicine; ATTEND Family Medicine
DX: J13 Pneumonia due to Streptococcus pneumoniae (principal); J90 Pleural effusion, not elsewhere classified; E66.3 Overweight; R07.89 Other chest pain; R73.9 Hyperglycemia, unspecified; K76.0 Fatty (change of) liver, not elsewhere classified; E80.6 Other disorders of bilirubin metabolism; R06.03 Acute respiratory distress; Z68.34 Body mass index [BMI] 34.0-34.9, adult
CPT/HCPCS: 36415; 71045; 71046; 71260; 76604; 76700; 80048; 80053; 80061; 80076; 83036; 83605; 83615; 83735; 83880; 84145; 84439; 84443; 84484; 85025; 85379; 85610; 87040; 93005; 93306; 94640; 94760; 96361; 96365; 96366; 96375; 99285; J0456; J0696; J1650; J1720; J1940; J2270; J2405; J2543; J2920; J7030; J7040; J7042; Q9967